=== PATIENT | female | born 1985 | race African-American/Black ===

== ENCOUNTER 2017-09-03 12:47 | Observation (INO) | payer OTHER ==
[~2017-09-03] VITALS: Ht 167.6 cm; Wt 72.6 kg
[2017-09-03] MEDS ORDERED: PNV1TABL76 PO (13:51)
[2017-09-03] MEDS ORDERED: ACETAMINOPHEN 500MG TABLET PO ONE (15:00)
== END 2017-09-03 16:40 | disposition home or self-care (01) ==
LOC: L&D 12:47
PROVIDERS: ADMIT Obstetrics & Gynecology; ATTEND Obstetrics & Gynecology
DX: O62.9 Abnormality of forces of labor, unspecified (principal); Z3A.38 38 weeks gestation of pregnancy
CPT/HCPCS: 99281; G0378

== ENCOUNTER 2023-09-30 12:21 | Emergency (ER) | payer OTHER ==
[~2023-09-30] VITALS: Ht 170.2 cm; Wt 93.0 kg
[~2023-09-30 12:21] MED LIST: PNV1TABL76 PO
[2023-09-30 13:26] LABS: BASOPHILS % 0.2 % (0.0-2.0); EOSINOPHILS % 4.6 % (0.0-5.0); HEMATOCRIT. 39.2 % (36.0-48.0); HEMOGLOBIN. 13.4 g/dL (12.0-16.0); LYMPHOCYTES % 42.2 % (20.0-50.0); MEAN CORPUSCULAR HEMOGLOBIN 30.1 pg (28.0-32.0); MEAN CORPUSCULAR HGB CONC 34.2 g/dL (31.0-37.0); MEAN CORPUSCULAR VOLUME 87.9 fL (81.0-99.0); MEAN PLATELET VOLUME 8.6 fl (7.4-10.4); MONOCYTES % 6.6 % (2.0-8.0); NEUTROPHILS % 46.4 % (40.0-76.0); PLATELET 317 x1000/uL (130-400); RED BLOOD CELL COUNT 4.46 mill/uL (4.2-5.4)
[2023-09-30 13:27] LABS: CHLORIDE 105 mEq/L (98-107); POTASSIUM 3.7 mEq/L (3.5-5.1); SODIUM 138 mEq/L (136-145)
[2023-09-30 13:28] LABS: CARBON DIOXIDE 24 mEq/L (21-32)
[2023-09-30 13:29] LABS: CALCIUM 9.9 mg/dL (8.7-10.4)
[2023-09-30 13:33] LABS: CREATININE 0.8 mg/dL (0.6-1.0); GLUCOSE 73 mg/dL (70-105)
[2023-09-30 13:34] LABS: UREA NITROGEN BLOOD 8 mg/dL (9-23)
[2023-09-30 13:38] LABS: TROPONIN I HIGH SENSITIVITY < 4 ng/L (3.0-34)
[2023-09-30 13:45] VITALS: TEMP 97.7
[2023-09-30] MEDS: ALBUTEROL (0.083%) 2.5MG/3ML NEB HHN SCH (14:42)
[2023-09-30] MEDS: IPRATROPIUM BROMIDE (0.02%) 0.5MG/2.5ML NEB HHN STA (14:42)
[2023-09-30 14:43] VITALS: PULSE 80; RESP 20; O2SAT 98
[2023-09-30] MEDS: METHYLPREDNISOLONE SOD SUCC 125MG/2ML (ACT-O-VIAL) IV STA (14:59)
[2023-09-30] MEDS: MAGNESIUM 2 G PREMIX 50 ML IV ONE (14:59)
[2023-09-30 15:02] LABS: TROPONIN I HIGH SENSITIVITY < 4 ng/L (3.0-34)
[2023-09-30 15:03] LABS: HCG SCREEN NEGATIVE
[2023-09-30] MEDS ORDERED: IOHEXOL-350 100 ML BOTTLE ONE (17:19)
[2023-09-30] MEDS ORDERED: ALBU6.7H15 INH (17:29)
[2023-09-30 17:52] VITALS: BP 131/82; PULSE 82; RESP 16
== END 2023-09-30 17:53 | disposition home or self-care (01) ==
LOC: EDBD 12:21 → ER 12:21
DX: J45.909 Unspecified asthma, uncomplicated (principal)
CPT/HCPCS: 80048; 84703; 83880; 85025; 84484; 36415; 71045; 71275; 94640; 93005; 96365; 96375; 99285; Q9967; J3475; J2930; Z7610 ×5